=== PATIENT | male | born 1985 | race Caucasian/White ===

== ENCOUNTER 2018-02-07 16:47 | Emergency (ER) | payer SELFPAY ==
[~2018-02-07] VITALS: Ht 165.1 cm; Wt 78.0 kg
[2018-02-08] MEDS ORDERED: IBUPROFEN 600MG TABLET PO ONE (00:30)
[2018-02-08 00:44] VITALS: BP 126/88
== END 2018-02-08 01:46 | disposition home or self-care (01) ==
LOC: ER 16:59
DX: S76.011A Strain of muscle, fascia and tendon of right hip, initial encounter (principal); S76.911A Strain of unspecified muscles, fascia and tendons at thigh level, right thigh, initial encounter; V29.69XA Unspecified motorcycle rider injured in collision with other motor vehicles in traffic accident, initial encounter; Y93.89 Activity, other specified; Y92.89 Other specified places as the place of occurrence of the external cause; Y99.8 Other external cause status
CPT/HCPCS: 72170; 99283